=== PATIENT | male | born 1985 | race Caucasian/White ===

== ENCOUNTER 2021-08-19 05:35 | Emergency (ER) | payer SELFPAY ==
--- NOTE | 2021-08-19 05:43 | Emergency Department Report ---
ED General Adult HPI - General Stated complaint: POSSIBLE OVERDOSE - History of Present Illness Initial comments: Patient is a 35-year-old white male with no past medical history presents to the ED with complaint of acute onset persistent anxiety characterized by fear, panic, tingling sensation after he took half a tablet of Adderall and Benadryl at home about 1 hour ago. Patient states that he got scared after taking this medications and came to the ED fearing that this medication might cause harm to him. Patient does not take any Adderall but borrowed one of the tablets from his brother who who has previously taken these medications for ADHD. Patient states that he took this medication because he wanted to sleep and thought that this medications might help him sleep after he got out of work. Patient denies chest pain, shortness of breath, headache, dizziness, syncope, palpitations, fever, chills, cough, abdominal pain, nausea and vomiting or change in vision. MD Complaint: ANXIETY; Took benadryl and Adderal tablets together, panicked -: Sudden, hour(s) (1) Radiation: non-radiation Severity scale (0 -10): 0 Consistency: constant Improves with: none Worsens with: none Associated Symptoms: denies other symptoms. denies: confusion, chest pain, cough, diaphoresis, headaches, loss of appetite, malaise, nausea/vomiting, rash, seizure, shortness of breath, syncope, weakness Treatments Prior to Arrival: none ED Review of Systems ROS: Stated complaint: POSSIBLE OVERDOSE Other details as noted in HPI Constitutional: denies: chills, fever Eyes: denies: eye pain, eye discharge, vision change ENT: denies: ear pain, throat pain Respiratory: denies: cough, shortness of breath, wheezing Cardiovascular: denies: chest pain, palpitations Endocrine: no symptoms reported Gastrointestinal: denies: abdominal pain, nausea, diarrhea Genitourinary: denies: urgency, dysuria Musculoskeletal: denies: back pain, joint swelling, arthralgia Skin: denies: rash, lesions Neurological: denies: headache, weakness, paresthesias Psychiatric: anxiety. denies: depression Hematological/Lymphatic: denies: easy bleeding, easy bruising ED Physical Exam - General General appearance: alert, in no apparent distress, anxious - Head Head exam: Present: atraumatic, normocephalic, normal inspection - Eye Eye exam: Present: normal appearance, PERRL, EOMI Pupils: Present: normal accommodation - ENT ENT exam: Present: normal exam, normal orophraynx, mucous membranes moist, TM's normal bilaterally, normal external ear exam - Neck Neck exam: Present: normal inspection, full ROM - Respiratory Respiratory exam: Present: normal lung sounds bilaterally. Absent: respiratory distress, wheezes, rales, rhonchi, stridor, chest wall tenderness, accessory muscle use, prolonged expiratory - Cardiovascular Cardiovascular Exam: Present: regular rate, normal rhythm, normal heart sounds. Absent: systolic murmur, diastolic murmur, rubs, gallop - GI/Abdominal GI/Abdominal exam: Present: soft, normal bowel sounds. Absent: tenderness, guarding, rebound, hyperactive bowel sounds, mass - Extremities Exam Extremities exam: Present: normal inspection, full ROM, normal capillary refill - Back Exam Back exam: Present: normal inspection, full ROM. Absent: tenderness, CVA tenderness (R), CVA tenderness (L), muscle spasm, paraspinal tenderness - Neurological Exam Neurological exam: Present: alert, oriented X3, CN II-XII intact, normal gait, reflexes normal - Psychiatric Psychiatric exam: Present: normal affect, normal mood, anxious - Skin Skin exam: Present: warm, dry, intact, normal color. Absent: rash ED Medical Decision Making - Medical Decision Making This is a 35-year-old white male with no past medical history presents to the ED with complaint of acute onset persistent anxiety characterized by fear, panic, tingling sensation after he took half a tablet of Adderall and Benadryl at home about 1 hour ago. Patient states that he got scared after taking this medications and came to the ED fearing that this medication might cause harm to him. Patient does not take any Adderall but borrowed one of the tablets from his brother who who has previously taken these medications for ADHD. Patient states that he took this medication because he wanted to sleep and thought that this medications might help him sleep after he got out of work. In the ED, patient is alert and oriented x3 and is not in any distress, fully interactive during the physical exam, is hemodynamically stable with normal vital signs. Patient has no other symptoms. Patient however appears to be anxious and scared when asked details about the reasons why he took the medications, and appears remorseful. Patient verbalizes no suicidal or homicidal ideations or hallucinations. Patient was therefore discharged home and advised to follow-up with his primary care physician in 3 to 5 days for reevaluation. Patient is advised return to the ED immediately if symptoms get worse - Differential Diagnosis Panic attack; anxiety; insomnia Critical care attestation.: If time is entered above; I have spent that time in minutes in the direct care of this critically ill patient, excluding procedure time. ED Disposition Clinical Impression: Anxiety as acute reaction to exceptional stress, Panic attack due to exceptional stress Disposition: 01 HOME / SELF CARE / HOMELESS Is pt being admited?: No Does the pt Need Aspirin: No Condition: Stable Instructions: Generalized Anxiety Disorder, Adult Additional Instructions: Plenty of fluids and follow-up with your primary care physician in 3 to 5 days for reevaluation. Return to the ED immediately if symptoms get worse. Avoid taking other peoples medications that you were not prescribed for because you do not have their medical conditions for which to take these medications. Referrals: [facility] [Provider Group] - 3-5 Days Time of Disposition: 05:39 Print Language: ARMENIAN
[2021-08-19 06:07] VITALS: BP 105/90
== END 2021-08-19 06:07 | disposition home or self-care (01) ==
LOC: ED 05:35
DX: F41.9 Anxiety disorder, unspecified (principal); F43.0 Acute stress reaction
CPT/HCPCS: 99282